=== PATIENT | male | born 1990 | race Caucasian/White ===

== ENCOUNTER 2024-03-30 11:32 | Emergency (ER) | payer SELFPAY ==
[2024-03-30 11:42] VITALS: BP 136/66; PULSE 79; RESP 18; TEMP 36.5; O2SAT 99
--- NOTE | 2024-03-30 12:15 | ED.GENADULT ---
HPI - General Adult General Date Seen: 03/30/24 Chief complaint: Back Injury/Pain Stated complaint: Pinched nerve in sciatica or lower back right side Time Seen by Provider: 03/30/24 11:34 Source: patient Mode of arrival: ambulatory Limitations: no limitations History of Present Illness HPI narrative: Patient is a 33-year-old male here for evaluation of right gluteal pain which started just about a week ago. 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 By Sunday he says the pain was severe and he was having trouble walking, but he had Sunday off any said by the end of the day Sunday was feeling pretty good. He was able to work and felt okay although pain started to return, and then Sunday it became severe again and has remained severe since then. He feels okay at rest but when he tries to walk, put weight on that leg, or lift the leg, he has pain in that area. He has not had any fevers, no radiating pain, no weakness. He has taken some ibuprofen a couple of times and has used some marijuana as well to help with pain. General health is good, no regular medications. Review of Systems Status of ROS: Reports: 6 or more systems reviewed and unremarkable except as noted in History and below [facility] Social History Smoking Status: Never smoker How often do you have a drink containing alcohol: never AUDIT-C Alcohol total score: 0 Non-prescribed substance use: marijuana (any form) Exam Narrative: Exam Narrative: Vital signs reviewed In general, an alert, nontoxic young man. Abdomen: Soft and nontender. Back: Nontender to palpation including the right SI joint. Extremities: The right lower extremity is normal in appearance. There is no erythema or swelling, no rashes. He has full range of motion of the hip although with extreme flexion he notes pain in the gluteal region. He has tenderness focally in the area of the gluteus medius or piriformis. No tenderness over the greater trochanter. Distal CMS is intact. Const: Vital Signs, click to edit/add: Vital Signs - 24 hr 03/30/24 11:42 03/30/24 12:38 03/30/24 12:39 Temperature 97.7 F Pulse Rate 79 78 Pulse Rate [Right] 79 Respiratory Rate 18 Blood Pressure 137/91 H Blood Pressure [Le ft Upper Arm] 136/66 Pulse Oximetry 99 98 97 Oxygen Delivery Me thod Room Air Documenting provider has reviewed patient's vital signs: yes Course Course ED Course: Will get an x-ray of the pelvis just to make sure there are no obvious bony abnormalities, would suspect that this is related to gluteus muscles or piriformis inflammation or tendinitis. He does say that he works out most days lifting weights but does not do a lot of lower body work. It sounds as if his job involves a fair amount of activity as well. Will give him IM morphine and Toradol for pain control here, crutches weight bear as tolerated, ibuprofen and Tylenol for home, I am giving him oxycodone, 8 tablets out of Inst[employer] of needed for severe pain, and then will have him follow-up with orthopedics for reassessment and determination as to whether not he needs additional imaging. I did do a pelvis x-ray here which by my review is negative, final radiology read likewise negative. Linked below. Vital Signs Vital signs: Initial Vital Signs Temperature 97.7 F 03/30/24 11:42 Temperature Source Temporal Artery Scan 03/30/24 11:42 Pulse Rate 79 03/30/24 11:42 Pulse Rhythm Regular 03/30/24 11:42 Respiratory Rate 18 03/30/24 11:42 Blood Pressure 136/66 03/30/24 11:42 Blood Pressure Mean 89 03/30/24 11:42 Blood Pressure Position Sitting 03/30/24 11:42 Pulse Oximetry 99 03/30/24 11:42 Oxygen Delivery Method Room Air 03/30/24 11:42 Vital Signs Temperature 97.7 F 03/30/24 11:42 Pulse Rate 79 03/30/24 11:42 Respiratory Rate 18 03/30/24 11:42 Blood Pressure 136/66 03/30/24 11:42 Pulse Oximetry 99 03/30/24 11:42 Oxygen Delivery Method Room Air 03/30/24 11:42 Temperature 97.7 F 03/30/24 11:42 Pulse Rate 78 03/30/24 12:39 Respiratory Rate 18 03/30/24 11:42 Blood Pressure 137/91 H 03/30/24 12:38 Pulse Oximetry 97 03/30/24 12:39 Oxygen Delivery Method Room Air 03/30/24 11:42 Medications Administered Medications: Discontinued Medications Generic Name Dose Route Start Last Admin Trade Name Carl PRN Reason Stop Dose Admin Ketorolac Tromethamine 30 mg 03/30/24 12:10 03/30/24 12:30 Ketorolac 30 Mg/Ml Inj IM 03/30/24 12:11 30 mg ONCE ONE Administration Morphine Sulfate 4 mg 03/30/24 12:10 03/30/24 12:32 Morphine 4 Mg/Ml Inj IM 03/30/24 12:11 4 mg ONCE ONE Administration Medical Decision Making Imaging Data Pelvis x-ray: Attestation: I have reviewed the pertinent imaging results. Radiologist's impression: Patient: Ismael Jarvis MR#: [id number] : 1990 Acct:[id number] Loc: ED Service Date: 03/30/[address]: Ordering Physician: Lilian Parr M.D. Date of Service: 03/30/24 Procedure(s): XR pelvis 1-2V Accession Number(s): [id number] cc: Lilian Parr M.D.; Provider,Not a Local~ For Patients: As a result of the Cures Act, medical imaging exams and procedure reports are released immediately into your electronic medical record. You may view this report before your referring provider. If you have questions, please contact your health care provider. INDICATION: Right gluteal pelvic pain TECHNIQUE: Pelvis radiograph 1 view COMPARISON: None FINDINGS: Bone: No acute fractures or aggressive bone lesions are identified. Joint: The hip joints are unremarkable. The visualized sacroiliac joints are unremarkable in appearance. The pubic symphysis is normal in appearance. Soft tissue: Unremarkable. No radiopaque foreign bodies are seen. IMPRESSION: 1. No acute osseous injuries or abnormalities are noted. Dictated by: Dylan Kaufman MD @ 03/30/2024 13:02:36 Discharge Plan Discharge Clinical Impression: Gluteal pain Patient Disposition: Home, Self-Care Condition: Improved Instructions: Musculoskeletal Pain (ED) Additional Instructions: Ibuprofen 400 mg plus Tylenol 1000 mg 3 times daily with food over the next few days to week. Oxycodone sparingly if needed for more severe pain. Do not combine with marijuana. I would recommend orthopedic follow-up to see how you are doing with conservative therapy and whether further imaging would be warranted. Your x-ray today is normal. Crutches, weight bear as tolerated. Will have you stay off of work for couple of days so that you can rest. Follow Up/Referrals: Provider,Not a Local [Primary Care Provider] - Stand Alone Forms: [employer] Info Instructions
[2024-03-30] MEDS: KETOROLAC 30 MG/ML inj IM (12:30)
[2024-03-30] MEDS: MORPHINE 4 MG/ML INJ IM (12:32)
[2024-03-30 12:38] VITALS: BP 137/91; PULSE 79; O2SAT 98
[2024-03-30 12:39] VITALS: PULSE 78; O2SAT 97
== END 2024-03-30 13:28 | disposition home or self-care (01) ==
PROVIDERS: Emergency Provider Emergency Medicine
DX: R10.2 Pelvic and perineal pain (principal)
CPT/HCPCS: 72170; 96372; 99283; 99284; J1885; J2270